=== PATIENT | male | born 1950 | race Caucasian/White ===

== ENCOUNTER → 2021-02-17 08:29 | Outpatient (CLI) | payer MEDICARE, OTHER, SELFPAY ==
--- NOTE | 2021-02-17 | DI.ECHO.S_ITS ---
[place] +---------+ [facility] +---------+ : : [address] : : : : [id number] : : : : Phone: [phone]+ Echocardiogram Report + + :Name: GET LAGUNA Study Date: 02/17/2021 Height: 69 in : :[facility] ReadingLocation: Weight: 155 lb : : Gender: Male BSA: 1.9 m2 : :: 1950 Age: 70 yrs BP: 164/98 mmHg: :Reason For Study: HYPERTENSION : :Ordering Physician: DAVINA, : :TREVOR Performed By: Iram Pelletier : :Referring: TREVOR GHOSH : + + Interpretation Summary Normal sinus rhythm. Normal LV size, wall thickness, wall motion and LV systolic function. EF is 60-65%. Stage I diastolic dysfunction. Mild LA enlargement; otherwise normal chamber sizes. Aortic valve leaflets are mildly thickened and calcified. There is aortic sclerosis wtih mild associated regurgitation. Moderately dilated aortic root (4.5 cm) and mildly dilated ascending aorta. Given hypertensive heart disease (with mild LA enlargement and moderately dilated aortic root) recommend better blood pressure control. Procedure: A two-dimensional transthoracic echocardiogram with color flow and Doppler was performed. The study quality was technically adequate. There is no prior echocardiogram noted for this patient. The patient was in sinus rhythm with heart rates between 70-85 bpm during the exam. Left Ventricle: The left ventricle is normal in size and wall thickness. The ejection fraction is estimated to be 60-65%. Diastolic parameters suggest probable normal left ventricular diastolic function and normal filling pressures. Right Ventricle: The right ventricle is normal in size and function. Atria: The left atrium is mildly dilated. Right atrial size is normal. There is no Doppler evidence for an interatrial shunt. Mitral Valve: The mitral valve is normal in structure and function. There is mild mitral annular calcification. There is a flat closure plane of the the mitral valve leaflets. There is trace mitral regurgitation. Aortic Valve: The aortic valve is trileaflet. The aortic valve opens well. There is no aortic valve stenosis. There is mild aortic regurgitation. Tricuspid Valve: The tricuspid valve is normal in structure and function. There is mild tricuspid regurgitation. The right ventricular systolic pressure is estimated to be at least 22 mmHg based on an estimated right atrial pressure of 3 mm Hg. Pulmonic Valve: The pulmonic valve leaflets are thin and pliable; valve motion is normal. There is mild pulmonic regurgitation. Great Vessels: The aortic root is mildly dilated. The ascending aorta is moderately enlarged. The IVC is of normal diameter and collapses greater than 50% with a sniff. This suggests a low right atrial pressure of 3 mm Hg. Pericardium/ Pleura There is no pericardial effusion. There is no pleural effusion. MMode/2D Measurements & Calculations LVIDd: 4.7 cm LVOT diam: 2.1 cm LVIDs: 3.0 cm Ao root diam: 4.5 cm FS: 35.1 % asc Aorta Diam: 4.2 cm IVSd: 0.64 cm Ao Arch Diam (Prox Trans): 2.8 cm LVPWd: 0.74 cm LV zarate. diameter/BSA (cm/m^2): 2.5 LV sys. diameter/BSA (cm/m^2): 1.6 LA A2 area: 23.0 cm2 RA long axis: 4.8 cm LA A4 area: 16.6 cm2 RA area: 14.8 cm2 LA length (vol): 4.8 cm RA vol: 38.6 ml LA vol: 68.2 ml RA : 20.8 ml/m2 LA vol index: 36.8 ml/m2 IVC diam: 1.2 cm RVD1 (basal): 3.7 cm RVD2 (mid): 3.0 cm TAPSE: 3.0 cm Doppler Measurements & Calculations Ao V2 max: 141.8 cm/sec LVOT Max Yosef: 109.2 cm/sec Ao V2 mean: 95.0 cm/sec LV V1 max P.8 mmHg Ao max P.0 mmHg LV V1 VTI: 20.0 cm Ao mean P.9 mmHg ARTEMIO(I,D): 2.7 cm2 Ao V2 VTI: 26.0 cm ARTEMIO(V,D): 2.7 cm2 sev ratio: 0.77 ARTEMIO indexed to BSA (cm^2/m^2): 1.5 AI P1/2t: 599.2 msec AI dec slope: 209.9 cm/sec2 MV E max yosef: 76.4 cm/sec TR max yosef: 216.6 cm/sec MV A max yosef: 80.9 cm/sec TR max P.8 mmHg MV E/A: 0.94 PA V2 max: 107.3 cm/sec Med Peak E' Yosef: 7.2 cm/sec PA V2 mean: 75.3 cm/sec E/E' med: 10.7 PA mean P.5 mmHg Lat Peak E' Yosef: 8.9 cm/sec PA pr(Accel): 24.2 mmHg E/E' lat: 8.6 E/e' average: 9.6 MV dec time: 0.21 sec SV(LVOT): 70.6 ml Electronically signed by: Josee Sierra M.D. on Reading Physician:02/18/2021 01:15 AM
== END ==
PROVIDERS: PCP Student in an Organized Health Care Education/Training Program; Referring Provider Student in an Organized Health Care Education/Training Program; Visit Provider Student in an Organized Health Care Education/Training Program
DX: I10 Essential (primary) hypertension (principal); I70.0 Atherosclerosis of aorta; I51.7 Cardiomegaly; I35.1 Nonrheumatic aortic (valve) insufficiency
CPT/HCPCS: 93306

== ENCOUNTER → 2022-03-04 07:28 | Outpatient (CLI) | payer MEDICARE, OTHER, SELFPAY ==
--- NOTE | 2022-03-04 | DI.ECHO.S_ITS ---
[place] +---------+ Hospital +---------+ : : [address] : : : : [phone] : : : : Phone: [phone]+ Echocardiogram Report + + :Name: GET LAGUNA Study Date: 03/04/2022 Height: 69 in : :[facility] ReadingLocation: Weight: 160 lb : : Gender: Male BSA: 1.9 m2 : :: 1950 Age: 72 yrs BP: 157/96 mmHg: :Reason For Study: AORTIC ANEURYSM : :Ordering Physician: DAVINA, : :TREVOR Performed By: Iram Pelletier : :Referring: TREVOR GHOSH : + + Interpretation Summary The ejection fraction is estimated to be 55-60%. There is mild aortic regurgitation. There is mild mitral regurgitation. There is borderline mitral valve prolapse. There is mild tricuspid regurgitation. The right ventricular systolic pressure is estimated to be at least 23 mmHg based on an estimated right atrial pressure of 3 mm Hg. Procedure: A two-dimensional transthoracic echocardiogram with color flow and Doppler was performed. The study quality was technically adequate. Comparison is made with the echocardiogram of 02/17/2022. The patient was in sinus rhythm with heart rates between 70-78 bpm during the exam. Left Ventricle: The left ventricle is normal in size and wall thickness. The ejection fraction is estimated to be 55-60%. There has been no significant change since the previous exam. Left ventricular wall motion is normal. Right Ventricle: The right ventricle is normal in size and function. Atria: The left atrial size is normal. Right atrial size is normal. There is no Doppler evidence for an interatrial shunt. Mitral Valve: There is mild to moderate mitral annular calcification. There is a flat closure plane of the the mitral valve leaflets. There is borderline mitral valve prolapse. There is mild mitral regurgitation. Aortic Valve: The aortic valve is trileaflet. The aortic valve opens well. There is no aortic valve stenosis. There is mild aortic regurgitation. Tricuspid Valve: The tricuspid valve is normal in structure and function. There is mild tricuspid regurgitation. The right ventricular systolic pressure is estimated to be at least 23 mmHg based on an estimated right atrial pressure of 3 mm Hg. Pulmonic Valve: The pulmonic valve leaflets are thin and pliable; valve motion is normal. There is mild pulmonic regurgitation. Great Vessels: The aortic root is mildly dilated. The ascending aorta is moderately enlarged. The IVC is of normal diameter and collapses greater than 50% with a sniff. This suggests a low right atrial pressure of 3 mm Hg. Pericardium/ Pleura There is no pericardial effusion. There is no pleural effusion. MMode/2D Measurements & Calculations LVIDd: 4.6 cm LVOT diam: 2.4 cm LVIDs: 3.1 cm Ao root diam: 4.5 cm FS: 32.5 % asc Aorta Diam: 4.1 cm IVSd: 0.95 cm Ao Arch Diam (Prox Trans): 2.8 cm LVPWd: 1.1 cm LV zarate. diameter/BSA (cm/m^2): 2.4 LV sys. diameter/BSA (cm/m^2): 1.6 LA A2 area: 19.9 cm2 RA long axis: 5.2 cm LA A4 area: 16.4 cm2 RA area: 15.9 cm2 LA length (vol): 4.8 cm RA vol: 41.7 ml LA vol: 57.6 ml RA : 22.2 ml/m2 LA vol index: 30.7 ml/m2 IVC diam: 1.3 cm RVD1 (basal): 4.0 cm RVD2 (mid): 2.8 cm TAPSE: 2.7 cm Doppler Measurements & Calculations Ao V2 max: 139.2 cm/sec LVOT Max Yosef: 105.8 cm/sec Ao V2 mean: 94.8 cm/sec LV V1 max P.5 mmHg Ao max P.7 mmHg LV V1 VTI: 21.2 cm Ao mean P.0 mmHg ARTEMIO(I,D): 3.7 cm2 Ao V2 VTI: 27.1 cm ARTEMIO(V,D): 3.6 cm2 sev ratio: 0.78 ARTEMIO indexed to BSA (cm^2/m^2): 2.0 AI P1/2t: 518.4 msec AI dec slope: 251.7 cm/sec2 MV E max yosef: 78.0 cm/sec TR max yosef: 222.5 cm/sec MV A max yosef: 78.9 cm/sec TR max P.8 mmHg MV E/A: 0.99 PA V2 max: 105.8 cm/sec Med Peak E' Yosef: 8.5 cm/sec PA V2 mean: 75.0 cm/sec E/E' med: 9.2 PA mean P.5 mmHg Lat Peak E' Yosef: 9.9 cm/sec E/E' lat: 7.9 E/e' average: 8.5 MV dec time: 0.20 sec SV(LVOT): 99.5 ml Reading Physician:02:05 PM
== END ==
PROVIDERS: PCP Student in an Organized Health Care Education/Training Program; Referring Provider Student in an Organized Health Care Education/Training Program; Visit Provider Student in an Organized Health Care Education/Training Program
DX: I08.3 Combined rheumatic disorders of mitral, aortic and tricuspid valves (principal); I77.810 Thoracic aortic ectasia; I77.89 Other specified disorders of arteries and arterioles
CPT/HCPCS: 93306

== ENCOUNTER 2023-08-08 08:42 | Day surgery (SDC) | payer MEDICARE, OTHER, SELFPAY ==
[2023-08-08 10:20] VITALS: BP 174/92; PULSE 92; RESP 16; TEMP 36.8; O2SAT 98
[2023-08-08] MEDS: LACTATED RINGERS 1,000 ML 42 ML IV (10:37)
--- NOTE | 2023-08-08 11:04 | PM.HP.1 ---
History of Present Illness History of Present Illness Date Patient Seen: 08/08/23 Time Patient Seen: 11:05 Chief complaint: SDC Narrative: 73-year-old male with a family history of colon cancer in his mom here for colon cancer screening. He has been having colonoscopies done every 5 years but is a little off schedule secondary to challenges with getting things scheduled during the COVID era.. Prior exams have been done in [place]. I have not seen these procedure notes. [facility] Social History Smoking Status: Never smoker alcohol intake: current Meds Home Medications and Allergies Home Medications Medication Instructions Recorded Confirmed Type gabapentin 300 mg capsule 300 mg PO DAILY 08/08/23 08/08/23 History telmisartan 20 mg tablet 20 mg PO DAILY 08/08/23 08/08/23 History Allergies Allergy/AdvReac Type Severity Reaction Status Date / Time No Known Drug Allergies Allergy Verified 08/08/23 10:17 Review of Systems Review of Systems ROS: Yes All systems reviewed with the patient and are negative except as otherwise documented Exam Vital Signs (past 8 hours): - 08/08/23 10:20 Temperature 98.2 F Pulse Rate 92 H Respiratory Rate 16 Blood Pressure 174/92 H Pulse Oximetry 98 Oxygen Delivery Method Room Air Oxygen Delivery Method Room Air Const General: cooperative HENMT Head: normal to inspection Eyes General: appearance normal, both eyes and all related structures Neck Neck: normal visual inspection Chest Chest: normal inspection of the chest Resp Effort & Inspection: normal respiratory effort Cardio Rate: regular rate GI Inspection: normal to inspection Skin General: no rashes or lesions noted Neuro General: patient alert and patient awake Extrem General: normal to inspection and no pedal edema Psych Appearance: grossly normal Assessment & Plan Assessment & Plan narrative: 73-year-old male with a family history of colon cancer. Colonoscopy is pursued today.
--- NOTE | 2023-08-08 11:06 | PM.PREOP ---
Pre-operative Note Interval Note History & Physical reviewed/Exam performed by Physician: Yes Changes to H&P: No ASA Class (for procedural sedation): II
--- NOTE | 2023-08-08 12:30 | PM.OP.COLON ---
Operative Date/Time/Diagnoses Date of procedure: 08/08/23 Time of procedure: 12:30 Pre-op diagnosis: Family history of colon cancer Post-op diagnosis: same Procedure & Clinicians Study performed: Colonoscopy Same procedure as scheduled: Yes Indications: Family history of colon cancer Surgeon: Luis Alberto Dinh Procedure Notes SCOAP/Timeout: Done Procedure in detail: After the risks and benefits were explained, written and verbal informed consent was obtained. The patient was brought into the procedure room and placed into the left lateral decubitus position. Please see anesthesia note for sedation details. Digital rectal examination was accomplished. The scope was introduced into the patient and advanced under direct visualization to the cecum as identified by the appendiceal orifice and ileocecal valve. The scope was slowly withdrawn to carefully examine the mucosa for any defects or lesions. Comprehensive imaging was accomplished throughout the rectum including the dentate line. The colon was decompressed, the scope was then removed from the patient who tolerated the procedure well. Pediatric colonoscope Bowel prep adequate after copious amounts of irrigation and suction to remove a large amount of retained prep fluid and liquid stool. Scope withdrawal time: 10 minutes Sedation minutes: 24 Specimen(s): none sent Complications: none Impression: The patient had a redundant lengthy colon. Grade 1 internal hemorrhoids were noted. No additional mucosal pathology was appreciated throughout. Endoscopic diagnosis 1. Grade 1 hemorrhoids 2. Lengthy redundant colon Post-procedure Plan for aftercare: Repeat colonoscopy 5 years considering family history. Disposition: PACU
[2023-08-08 12:33] VITALS: BP 124/77; PULSE 83; RESP 15; TEMP 37.1; O2SAT 100
[2023-08-08 12:36] VITALS: BP 128/77; PULSE 82; RESP 16; O2SAT 99
[2023-08-08 12:41] VITALS: BP 132/83; PULSE 78; RESP 19; O2SAT 100
== END 2023-08-08 12:56 | disposition home or self-care (01) ==
PROVIDERS: PCP Student in an Organized Health Care Education/Training Program; Referring Provider Internal Medicine Gastroenterology; Visit Provider Internal Medicine Gastroenterology
PROC: 0DJD8ZZ Inspection of Lower Intestinal Tract, Via Natural or Artificial Opening Endoscopic (ICD-10-PCS; CPT 45378; principal; 2023-08-08 10:30)
DX: Z12.11 Encounter for screening for malignant neoplasm of colon (principal); Z80.0 Family history of malignant neoplasm of digestive organs; K64.8 Other hemorrhoids
CPT/HCPCS: G0105; J2704